=== PATIENT | male | born 1970 | race Caucasian/White ===

== ENCOUNTER 2019-02-18 07:05 | Day surgery (SDC) | payer OTHER ==
[2019-02-17 15:35] VITALS: BMI 26.1
[2019-02-18] VITALS (12 sets, daily range): BP systolic 99–121; BP diastolic 62–81; PULSE 58–69; RESP 11–21; Ht 180.3 cm; Wt 85.6 kg
[~2019-02-18] VITALS: Ht 180.3 cm; Wt 85.6 kg
[~2019-02-18 07:05] MED LIST: CEFAZOLIN 2 GM/50 ML (PMX) 50 ML IVPB SCH; CEPH-443 PO; SOD CHLORIDE 0.9% 1,000 ML IV SCH; SULF1TAB31 PO
[2019-02-18] MEDS ORDERED: LIDOCAINE 2% (MDV) 20 ML INJ ONE (07:54)
[2019-02-18] MEDS ORDERED: BUPIVACAINE 0.25% (MPF) 30 ML INJ ONE (07:54)
[2019-02-18] MEDS ORDERED: ONDANSETRON 4 MG INJ IV PRN (08:30)
[2019-02-18] MEDS ORDERED: ALBUTEROL 0.083% (NEB) 2.5 MG/3 ML AMP HHN PRN (08:30)
[2019-02-18] MEDS ORDERED: DIPHENHYDRAMINE 50 MG INJ IV PRN (08:30)
[2019-02-18] MEDS ORDERED: METOCLOPRAMIDE 10 MG INJ IV PRN (08:30)
[2019-02-18] MEDS ORDERED: FENTAnyl 50 MCG/ML VIAL IV PRN ×3 (08:30)
[2019-02-18] MEDS ORDERED: MEPERIDINE 25 MG INJ IV PRN (08:30)
[2019-02-18] MEDS ORDERED: HYDROmorphONE 1 MG/5 ML IV SYRINGE IV PRN ×3 (08:30)
[2019-02-18] MEDS ORDERED: SUCCINYLCHOLINE CHLORIDE 100 MG/5 ML SYG IV ONE (08:47)
[2019-02-18] MEDS ORDERED: FENTAnyl 50 MCG/ML VIAL ONE (08:47)
[2019-02-18] MEDS ORDERED: PROPOFOL 20 ML ONE (08:47)
[2019-02-18] MEDS ORDERED: LIDOCAINE 100 MG SYRINGE ONE (08:47)
[2019-02-18] MEDS ORDERED: ROCURONIUM 50 MG INJ ONE (08:47)
[2019-02-18] MEDS ORDERED: CEFAZOLIN 1 GM INJ ONE (08:47)
[2019-02-18] MEDS ORDERED: SUGAMMADEX SODIUM 200 MG/2 ML VIAL IV ONE ×2 (09:00→09:02)
[2019-02-18] MEDS ORDERED: HYDROCODONE/APAP (5/325) TAB PO ONE (09:30)
== END 2019-02-18 11:55 | disposition home or self-care (01) ==
LOC: SDS 07:05
PROVIDERS: ATTEND Surgery
DX: D17.22 Benign lipomatous neoplasm of skin and subcutaneous tissue of left arm (principal); R94.31 Abnormal electrocardiogram [ECG] [EKG]
CPT/HCPCS: 14020; 71045; 80053; 85025; 85610; 85730; 93005; J2001; J3010; Z7610; 88307; J0690

== ENCOUNTER 2019-02-28 06:40 | Emergency (ER) | payer OTHER ==
[~2019-02-28] VITALS: Ht 180.3 cm; Wt 85.6 kg
[~2019-02-28 06:40] MED LIST changes: -CEFAZOLIN 2 GM/50 ML (PMX) 50 ML IVPB SCH; -SOD CHLORIDE 0.9% 1,000 ML IV SCH
[2019-02-28 06:42] VITALS: Ht 180.3 cm; Wt 85.6 kg
[2019-02-28 07:32] VITALS: BP 118/66; PULSE 76; RESP 20
== END 2019-02-28 07:33 | disposition home or self-care (01) ==
LOC: E/R 06:40
DX: L03.114 Cellulitis of left upper limb (principal); Z87.891 Personal history of nicotine dependence
CPT/HCPCS: 99283